=== PATIENT | female | born 1960 | race Two or more races ===

== ENCOUNTER → 2018-11-06 | Outpatient (CLI) | payer OTHER | END | disposition home or self-care (01) | LOC: RAD 14:11 | DX: M54.40 Lumbago with sciatica, unspecified side (principal) ==

== ENCOUNTER 2024-08-07 19:57 | Emergency (ER) | payer OTHER ==
[~2024-08-07] VITALS: Ht 160 cm; Wt 75.7 kg
[2024-08-07] MEDS ORDERED: MECLIZINE HCL 25 MG TABLET PO ONE ×2 (20:43→20:45)
[2024-08-07 21:55] LABS: BASO % 0.4 % (0.1-1.2); EOS % 2.9 % (0.7-7.0); HEMATOCRIT 37.9 % (34.1-44.9); LYMPH # 2.88 (1.18-3.74); LYMPH % 41.9 % (19.3-53.1); MEAN CORPUSCULAR HEMOGLOBIN 26.3 pg (25.6-32.2); MONO # 0.38 (0.24-0.82); MONO % 5.5 % (4.7-12.5); NEUT # 3.38 (1.56-6.13); NEUT % 49.2 % (34.0-71.1); PLATELET COUNT 276 K/uL (163-369); RED BLOOD COUNT 4.56 M/uL (3.93-5.22); RED CELL DISTRIBUTION WIDTH 14.2 % (11.6-14.4)
[2024-08-07 22:24] LABS: ALBUMIN 3.3 gm/dL (3.4-5.0); BILIRUBIN TOTAL 0.4 mg/dL (0.3-1.2); CALCIUM 8.7 mg/dL (8.5-10.1); CREATININE SERUM 0.91 mg/dL (0.55-1.02); GFR 62.24; GLOBULINA 3.8 G/DL (2.4-3.5); POTASSIUM 3.97 mEq/L (3.5-5.1); TOTAL PROTEIN 7.1 gm/dL (6.4-8.2)
[2024-08-07 22:55] LABS: COVID-19 AG NEGATIVE (NEGATIVE); INFLUENZA A AG NEGATIVE (NEGATIVE); INFLUENZA B AG NEGATIVE (NEGATIVE)
[2024-08-07] MEDS ORDERED: MOTION SICKNESS25 M1 PO (23:00)
== END 2024-08-07 23:03 | disposition home or self-care (01) ==
LOC: ER 21:37
PROVIDERS: General Practice
DX: I69.398 Other sequelae of cerebral infarction (principal); R42 Dizziness and giddiness; Z20.822 Contact with and (suspected) exposure to COVID-19